=== PATIENT | female | born 1995 | race Hispanic/Latino ===

== ENCOUNTER 2020-02-15 12:40 | Emergency (ER) | payer SELFPAY ==
[2020-02-15] MEDS ORDERED: Morphine 4 MG/ML VIAL ONE (12:52)
[2020-02-15] MEDS ORDERED: Ondansetron PF 4 MG/2 ML Vial ONE (12:52)
[2020-02-15] MEDS ORDERED: Sodium Chloride 0.9% 1,000 ML ONE (13:03)
[2020-02-15 13:10] LABS: BHCG - Serum Negative (NEGATIVE); Pregs Control Bar Appear? YES (CONTROL BAR)
[2020-02-15 13:14] LABS: ALT (SGPT) 25 U/L (8-55); AST (SGOT) 50 U/L (5-34); Albumin 4.5 g/dL (3.5-5.0); Alkaline Phosphatase 85 U/L (40-110); Anion Gap 18 mmol/L (10-20); BUN (Urea Nitrogen) 16 mg/dL (7.0-18.7); Bilirubin, Total 0.3 mg/dL (0.2-1.2); Calc. Creatinine Clearance 0 mL/min (70-130); Calcium 10.2 mg/dL (7.8-10.44); Carbon Dioxide 21 mmol/L (22-29); Chloride 106 mmol/L (98-107); Estimated GFR-MDRD 84; Glucose 106 mg/dL (70-105); Lipase 74 U/L (8-78); Potassium 3.9 mmol/L (3.5-5.1); Protein, Total 8.5 g/dL (6.0-8.3); Sodium 141 mmol/L (136-145)
[2020-02-15 13:33] LABS: #Basophils 0.1 thou/uL (0.0-0.2); #Eosinphils 0.2 thou/uL (0.0-0.7); #Lymphocytes 4.7 thou/uL (1.20-3.40); #Monocytes 0.9 thou/uL (0.11-0.59); #Neutrophils 6.1 thou/uL (1.40-6.50); %Basophils 1.2 % (0.0-1.0); %Eosinophils 1.4 % (0.0-10.0); %Monocytes 7.4 % (0.0-10.0); %Neutrophils 51.1 % (42.0-75.0); Hemoglobin 14.2 g/dL (12.0-16.0); Mean Corpuscular HGB CONC 29.8 g/dL (32.0-36.0); Mean Corpuscular Hemoglobin 26.9 pg (27.0-31.0); Mean Corpuscular Volume 90.1 fL (78.0-98.0); Mean Platelet Volume 7.9 fL (7.4-10.4); Platelet Count 361 thou/uL (130-400); RBC Distribution Width 17.7 % (11.5-14.5); Red Blood Cell (RBC) Count 5.29 mill/uL (4.20-5.40)
--- NOTE | 2020-02-15 14:27 | CT ---
CT Abdomen Pelvis WO Con 02/15/2020 1:28 PM HISTORY: Acute onset of right-sided abdominal pain. COMPARISON: None. Technique: Multiple contiguous axial CT images are obtained through the abdomen and pelvis without IV contrast. Coronal reformats are provided. FINDINGS: This examination is limited for the evaluation of solid organs and vascular structures due to the lac k of intravenous contrast. Lower Chest: Lung bases are clear. Abdomen: Liver: Grossly normal non-enhanced CT appearance. Gallbladder: Within normal limits for CT imaging. Pancreas: Grossly normal nonenhanced CT appearance. Spleen: Grossly normal nonenhanced CT appearance. Adrenals: Grossly normal nonenhanced CT appearance. Kidneys: No renal calculi are visualized, and there is no evidence of hydronephrosis. Ureters: No ureteral calculus is seen.. Pelvis: Urinary bladder: within normal limits. Reproductive Organs: Uterus demonstrates grossly normal nonenhanced CT appearance. Lymph Nodes: No enlarged lymph nodes. Bowel: Normal caliber. Appendix: The appendix is normal in caliber. Peritoneum: No free fluid, free air, or fluid collection. Retroperitoneum: within normal limits. Vessels: Abdominal aorta is normal in caliber.. Abdominal Wall: within normal limits. Bones: within normal limits. IMPRESSION: 1. No renal or ureteral calculi are seen bilaterally.
[2020-02-15 14:46] LABS: Bilirubin Negative (Negative); Blood, Urine Moderate (Negative); Clarity Slightly Cloudy (Clear); Glucose, Urine (Dipstick) Negative (Negative); Leukocyte Moderate (Negative); Nitrite Negative (Negative); Protein, Urine (Dipstick) Negative (Neg-Trace); Urobilinogen 0.2 mg/dL (Less than 2)
[2020-02-15 14:50] LABS: Bacteria/HPF Rare-Few HPF (None Seen); RBC/HPF 0-3 HPF (0-3); Squamous Epithelial 0-3 HPF (0-3)
[2020-02-15] MEDS ORDERED: cefTRIAXone\\ROCEPHIN 2 GM VIAL ONE (15:17)
[2020-02-15] MEDS ORDERED: Sodium Chloride 0.9% 0 ML ONE (15:18)
[2020-02-15] MEDS ORDERED: Sodium Chloride 0.9% 100 ML ONE (15:20)
== END 2020-02-15 15:56 | disposition home or self-care (01) ==
LOC: NAV ERS 12:40
DX: N39.0 Urinary tract infection, site not specified (principal); R10.11 Right upper quadrant pain; F17.210 Nicotine dependence, cigarettes, uncomplicated
CPT/HCPCS: 74176; 80053; 81003; 81015; 83690; 84703; 85025; 87077; 87086; 94760; 96365; 96375; J0696; J2270; J2405; J3490; J7050